=== PATIENT | male | born 1960 | race Two or more races ===

== ENCOUNTER 2025-01-31 06:43 | Day surgery (SDC) | payer MEDICAID, OTHER ==
[2025-01-31] VITALS (7 sets, daily range): BP systolic 94–111; BP diastolic 43–66; PULSE 51–69; RESP 15–16; TEMP 98.5; O2SAT 94–96
[~2025-01-31] VITALS: Ht 167.6 cm; Wt 92.5 kg
[~2025-01-31 06:43] MED LIST: ASPI-543 PO; ASPITAB34 PO; ATOR10TA52 PO; FAMO-12 PO; LISI40TA16 PO; TOPI1CAP PO
[2025-01-31] MEDS: IODIXANOL 320MG/ML 100ML BTL IV ONE (08:19)
[2025-01-31] MEDS: HEPARIN SODIUM (PORCINE) 5000 UNITS/ML 1ML VIAL ONE (09:01)
[2025-01-31] MEDS: ANGIOMAX 250 MG VIAL IV ONE (09:01)
[2025-01-31] MEDS: VERAPAMIL 2.5MG/ML INJ 2ML VIAL IV ONE (09:01)
[2025-01-31] MEDS: fentaNYL CITRATE 100 MCG/2 ML VL ONE (09:02)
[2025-01-31] MEDS: SODIUM CHL 0.9% 0 ML ONE (09:03)
[2025-01-31] MEDS: LIDOCAINE 2%HCL (LOCAL ANESTH.) INJ 20ML MDV ONE (09:03)
[2025-01-31] MEDS: MIDAZOLAM HCL 2MG/2ML 2ml VIAL (1mg/ml) ONE (09:03)
--- NOTE | 2025-01-31 13:17 | DVHOP2 ---
Operative Report - 2 Report Details Date: 01/31/25 Preop Diagnosis: Aortic stenosis Postop Diagnosis: Aortic stenosis. Normal coronaries. Normal LV function. Surgeon: Andrez De La Cruz MD Anesthesiologist: Conscious sedation Anesthesia: Mac, Local Consent: The patient was informed of the risks and benefits of the procedure. These i nclude but are not limited to complications of anesthesia, postoperative infection, incomplete relief of symptoms, recurrence of symptoms, damage to blood vessels, nerves and tendons, deep venous thrombosis, pulmonary embolism and possible need for repeat surgery in the future. Complications: No complications Findings: Severe aortic stenosis. Normal coronaries. Indications for Surgery: Aortic stenosis. Chest pain. Name of Procedure Performed Right and left heart catheterization. Bilateral cine coronary angiography. Left ventriculography. Procedure Details Procedure Details: Prior local anesthesia with 2% lidocaine to the right antecubital area and right radial area. Under ultrasound guidance we obtained access into the antecubital vein and placed a six [place] sheath with a micro puncture device. We also gained access into the radial artery and placed a six [place] sheath. Through t he venous catheter we placed a [place]-Kay catheter into the right atrium right ventricle pulmonary artery and capillary wedge pressure positions where pressures were obtained and recorded. Cardiac output was determined by the thermodilution technique in triplicate. We then placed a arterial sheath as mentioned and [place] catheters were used to cannulate both right and left coronary ostium. We used a [place] catheter to obtain simultaneous pressures in the aorta and left ventricle respectively. No complications Hemodynamics: Right atrial pressure was 11 with a right ventricular pressure of 33/12. Pulmonary artery pressure of 23/16 a capillary wedge pressure of 14. An aortic blood pressure of 107/60 with a left ventricular pressure of 150/19. Peak to peak gradient of43 point eight 6 mmHg. Calculated valve area is 0.95 cm2 consistent with severe aortic stenosis. Coronary anatomy: RCA is a large normal vessel. PDA and posterolateral branches are normal. Left main is large and normal. Left anterior descending is large and normal. Diagonals are free of significant disease. Circumflex is normal with two large marginals free of significant disease. Ventriculography in the ARGUETA projection shows an EF of 60%. Impression: Normal left ventricular end-diastolic pressure at rest. Normal pulmonary pressures. Severe aortic stenosis with a valve area of 0.9 cm2. Normal coronary arteries Recommendations: Patient will be referred for TAVR. Condition Good Disposition Home Date of Service: Jan 31, 2025 Billing Provider: ANDREZ DE LA CRUZ Sr., MD Cardiology Common Codes: 47738-EZGDNTI INP/OBS CARE (High) Cardiology Procedure Codes: 83555-B HEART CATH YOLANDA 02SAT, 34937-FQYT HEART CATH W/INTRA INJ ANDREZ DE LA CRUZ Sr., MD Jan 31, 2025 13:17
== END 2025-01-31 13:45 | disposition home or self-care (01) ==
LOC: CATH 06:43
PROVIDERS: ATTEND Internal Medicine
DX: I35.0 Nonrheumatic aortic (valve) stenosis (principal); Z79.82 Long term (current) use of aspirin; Z79.899 Other long term (current) drug therapy; Z91.011 Allergy to milk products
CPT/HCPCS: 93460; C1769; C1887; C1894; J1644; J2250; J3010; Q9967; 99152; 99153